=== PATIENT | female | born 1945 | race Caucasian/White ===

== ENCOUNTER 2019-12-21 08:59 | Emergency (ER) | payer OTHER ==
[2019-12-21 09:58] LABS: Absolute Lymphocytes (CBC) 1.1 K/uL (0.7-4.9); Basophils % 0.5 % (0-1.3); Hematocrit 41.4 % (36.0-45.0); Lymphocytes % 7.7 % (15.3-44.8); MPV 9.2 fL (7.6-11.3); RBC Red Blood Cell Count 4.65 M/uL (3.86-4.86)
[2019-12-21] MEDS ORDERED: NA CHLORIDE 0.9% 1,000 ML ONE (10:04)
[2019-12-21] MEDS ORDERED: FENTANYL CITR 100 MCG/2 ML ONE (10:04)
[2019-12-21 10:14] LABS: Albumin 3.5 g/dL (3.4-5.0); Bilirubin Direct 0.2 mg/dL (0-0.2); Potassium 3.3 mmol/L (3.5-5.1); Protein, Total 7.8 g/dL (6.4-8.2)
[2019-12-21 10:32] LABS: Urine Bacteria <20 /HPF (<20)
[2019-12-21 10:33] LABS: Urine Culture Reflex Order NOT NEEDED; Urine Mucus 1+ /HPF (NONE SEEN)
[2019-12-21 10:34] LABS: Urine Blood 2+ (NEG); Urine Glucose NEGATIVE (NEG); Urine Protein NEGATIVE (NEG)
[2019-12-21] MEDS ORDERED: CEFOXITIN/SWI 1gm 1 GM/10 ML SYR ONE (10:36)
--- NOTE | 2019-12-21 10:43 | RAD REPORT ---
EXAM DESCRIPTION: US - Abdomen Exam Limited - 12/21/2019 10:14 am CLINICAL HISTORY: Abdominal pain. COMPARISON: 2011 FINDINGS: The gallbladder wall is not thickened. Multiple gallstones are present The biliary tree is normal caliber. IMPRESSION: Cholelithiasis without evidence of cholecystitis.
--- NOTE | 2019-12-21 10:53 | ER ---
Nurse's Notes [facility] Name: Nena Calderon Age: 74 yrs Sex: Female : 1945 Arrival Date: 12/21/2019 Time: 09:02 Bed 6 Private MD: Shiv Purvis T Diagnosis: Cholelithiasis;Upper abdominal pain, unspecified Presentation: 12/20 09:09 Chief complaint: Patient states: epigastric pain that started on Saturday, denies N/V/D em or fever, yesterday pain moved down to naval area/groin. Coronavirus screen: Patient denies a cough. Patient denies shortness of breath or difficulty breathing. Patient denies measured and/or subjective temperature greater than 100.4F prior to today's visit. Patient denies travel on a cruise ship or to a country the [facility]NOTE 3] currently lists as an affected area. Patient denies contact with known and/or suspected case of COVID-19. Ebola Screen: Patient negative for fever greater than or equal to 101.5 degrees Fahrenheit, and additional compatible Ebola Virus Disease symptoms Patient denies exposure to infectious person. Patient denies travel to an Ebola-affected area in the 21 days before illness onset. No symptoms or risks identified at this time. Initial Sepsis Screen: Does the patient meet any 2 criteria? No. Patient's initial sepsis screen is negative. Does the patient have a suspected source of infection? No. Patient's initial sepsis screen is negative. Risk Assessment: Do you want to hurt yourself or someone else? Patient reports no desire to harm self or others. Onset of symptoms was December 19, 2019. 09:09 Method Of Arrival: Ambulatory em 09:09 Acuity: CANDE 3 em Historical: - Allergies: 09:13 No Known Allergies; em - Home Meds: 09:13 Lisinopril Oral [Active]; em - PMHx: 09:13 Hypertension; em - PSHx: :13 mela. knee replacements; em - Immunization history:: Adult Immunizations up to date. - Social history:: Smoking status: . Vital Signs: 09:09 BP 135 / 88; Pulse 89; Resp 18; Temp 98.4(O); Pulse Ox 99% on R/A; Weight 61.23 kg; em Height 5 ft. 2 in. (157.48 cm); Pain 8/10; 10:41 BP 105 / 64; Pulse 73; Resp 18; Pulse Ox 95% on R/A; sv 09:09 Body Mass Index 24.69 (61.23 kg, 157.48 cm) em ED Course: 09:02 Patient arrived in ED. ag5 09:02 Shiv Purvis MD is Private Physician. ag5 09:07 Aneta Hewitt FNP-C [facility]. snw 09:07 Iván Lopez MD is Attending Physician. snw 09:12 Triage completed. em 09:13 Arm band placed on. em 09:35 Marissa Walker RN is Primary Nurse. sv 09:45 Inserted saline lock: 20 gauge in left antecubital area, using aseptic technique. Blood sv collected. Flushed left antecubital with 5 ml normal saline. 09:52 Urine Dipstick--Ancillary (enter results) Sent. sv 09:52 Basic Metabolic Panel Sent. sv 10:15 US Abdomen Limited In Process Unspecified. EDMS 10:52 Patrice Contreras MD is Referral Physician. snw 12:10 No provider procedures requiring assistance completed. IV discontinued, intact, sv bleeding controlled, No redness/swelling at site. Pressure dressing applied. Administered Medications: 10:03 Drug: fentaNYL (PF) 25 mcg Route: IVP; Site: left antecubital; sv 11:00 Follow up: Response: No adverse reaction; Pain is decreased; RASS: Alert and Calm (0) sv 10:03 Drug: NS 0.9% 1000 ml Route: IV; Rate: 75 ml/hr; Site: left antecubital; sv 12:09 Follow up: Response: No adverse reaction; IV Status: Order to discontinue infusion sv 11:09 Drug: Mefoxin 1 grams Route: IVPB; Infused Over: 30 mins; Site: left antecubital; sv 11:11 Follow up: Response: No adverse reaction; IV Status: Completed infusion; IV Intake: 10mlsv Intake: 11:11 IV: 10ml; Total: 10ml. sv Outcome: 10:53 Discharge ordered by . snw 12:10 Discharged to home ambulatory. sv 12:10 Condition: stable 12:10 Discharge instructions given to patient, Instructed on discharge instructions, follow up and referral plans. medication usage, Demonstrated understanding of instructions, follow-up care, medications, Prescriptions given X 2. 12:10 Patient left the ED. sv Signatures: Dispatcher [employer] Marissa Crawford, Aneta Rodriguez RN, WEATHERIZATION COORDINATOR-C WEATHERIZATION COORDINATOR-Manuel Mayorga, RN Martine Licona ag5
--- NOTE | 2019-12-21 10:53 | EDPHYS ---
Physician Documentation [facility] Name: Nena Calderon Age: 74 yrs Sex: Female : 1945 Arrival Date: 12/21/2019 Time: 09:02 Bed 6 Private MD: Shiv Purvis T ED Physician Iván Lopez HPI: 12/20 11:01 This 74 yrs old Female presents to ER via Ambulatory with complaints of snw Abdominal Cramping, Abdominal Pain. 11:01 The patient presents with abdominal pain in the right upper quadrant, that is diffuse. snw Onset: The symptoms/episode began/occurred 1 week(s) ago, and became worse yesterday, and became persistent. The symptoms do not radiate. Associated signs and symptoms: Pertinent positives: pressure. The symptoms are described as crampy. Severity of pain: At its worst the pain was moderate. The patient has not experienced similar symptoms in the past. It is unknown whether or not the patient has recently seen a physician, sees Dr. Purvis. Historical: - Allergies: 09:13 No Known Allergies; em - Home Meds: 09:13 Lisinopril Oral [Active]; em - PMHx: 09:13 Hypertension; em - PSHx: 09:13 mela. knee replacements; em - Immunization history:: Adult Immunizations up to date. - Social history:: Smoking status: . ROS: 11:02 Constitutional: Negative for fever, chills, and weight loss, Eyes: Negative for injury, snw pain, redness, and discharge, ENT: Negative for injury, pain, and discharge, Neck: Negative for injury, pain, and swelling, Cardiovascular: Negative for chest pain, palpitations, and edema, Respiratory: Negative for shortness of breath, cough, wheezing, and pleuritic chest pain, Back: Negative for injury and pain, : Negative for injury, bleeding, discharge, and swelling, MS/Extremity: Negative for injury and deformity, Skin: Negative for injury, rash, and discoloration, Neuro: Negative for headache, weakness, numbness, tingling, and seizure. 11:02 Abdomen/GI: Positive for abdominal pain, abdominal cramps, abdominal distension, flatulence. Exam: 10:59 Constitutional: This is a well developed, well nourished patient who is awake, alert, snw and in no acute distress. Head/Face: Normocephalic, atraumatic. Eyes: Pupils equal round and reactive to light, extra-ocular motions intact. Lids and lashes normal. Conjunctiva and sclera are non-icteric and not injected. Cornea within normal limits. Periorbital areas with no swelling, redness, or edema. ENT: Nares patent. No nasal discharge, no septal abnormalities noted. Tympanic membranes are normal and external auditory canals are clear. Oropharynx with no redness, swelling, or masses, exudates, or evidence of obstruction, uvula midline. Mucous membranes moist. Neck: Trachea midline, no thyromegaly or masses palpated, and no cervical lymphadenopathy. Supple, full range of motion without nuchal rigidity, or vertebral point tenderness. No Meningismus. Chest/axilla: Normal chest wall appearance and motion. Nontender with no deformity. No lesions are appreciated. Cardiovascular: Regular rate and rhythm with a normal S1 and S2. No gallops, murmurs, or rubs. Normal PMI, no JVD. No pulse deficits. Respiratory: Lungs have equal breath sounds bilaterally, clear to auscultation and percussion. No rales, rhonchi or wheezes noted. No increased work of breathing, no retractions or nasal flaring. Back: No spinal tenderness. No costovertebral tenderness. Full range of motion. Skin: Warm, dry with normal turgor. Normal color with no rashes, no lesions, and no evidence of cellulitis. MS/ Extremity: Pulses equal, no cyanosis. Neurovascular intact. Full, normal range of motion. Neuro: Awake and alert, GCS 15, oriented to person, place, time, and situation. Cranial nerves II-XII grossly intact. Motor strength 5/5 in all extremities. Sensory grossly intact. Cerebellar exam normal. Normal gait. Psych: Awake, alert, with orientation to person, place and time. Behavior, mood, and affect are within normal limits. 10:59 Abdomen/GI: Inspection: abdomen appears normal, Bowel sounds: normal, Palpation: moderate abdominal tenderness, in the anterior aspect of right lateral abdomen, anterior aspect of left lateral abdomen and right upper quadrant. Vital Signs: 09:09 BP 135 / 88; Pulse 89; Resp 18; Temp 98.4(O); Pulse Ox 99% on R/A; Weight 61.23 kg; em Height 5 ft. 2 in. (157.48 cm); Pain 8/10; 10:41 BP 105 / 64; Pulse 73; Resp 18; Pulse Ox 95% on R/A; sv 09:09 Body Mass Index 24.69 (61.23 kg, 157.48 cm) em MDM: 09:37 Patient medically screened. snw 10:51 Data reviewed: vital signs, nurses notes. Data interpreted: Pulse oximetry: on room air snw is 95 %. Interpretation: normal. Counseling: I had a detailed discussion with the patient and/or guardian regarding: the historical points, exam findings, and any diagnostic results supporting the discharge/admit diagnosis, lab results, radiology results, the need for outpatient follow up, for definitive care, a general surgeon. Physician consultation: Patrice Contreras MD was called at 10:52, was contacted at 10:52, regarding need to evaluate the patient as soon as possible, and will see patient in office, later today. 12/20 09:17 Order name: Basic Metabolic Panel snw 12/20 09:17 Order name: CBC with Diff; Complete Time: 16:28 snw 12/20 09:17 Order name: Hepatic Function; Complete Time: 10:21 snw 12/20 09:17 Order name: Lipase; Complete Time: 10:21 snw 12/20 09:17 Order name: Urine Culture snw 12/20 09:17 Order name: Urine Microscopic Only; Complete Time: 10:40 snw 12/20 09:17 Order name: IV Saline Lock; Complete Time: 09:52 snw 12/20 09:18 Order name: Basic Metabolic Panel; Complete Time: 10:21 EDMS 12/20 09:51 Order name: Urine Dipstick--Ancillary (enter results); Complete Time: 10:40 mt 12/20 09:52 Order name: US Abdomen Limited; Complete Time: 10:44 snw 12/20 12:05 Order name: Manual Differential; Complete Time: 16:28 EDMS 12/20 09:17 Order name: Labs collected and sent; Complete Time: 09:52 snw 12/20 09:17 Order name: Urine Dipstick-Ancillary (obtain specimen); Complete Time: 09:52 snw Administered Medications: 10:03 Drug: fentaNYL (PF) 25 mcg Route: IVP; Site: left antecubital; sv 11:00 Follow up: Response: No adverse reaction; Pain is decreased; RASS: Alert and Calm (0) sv 10:03 Drug: NS 0.9% 1000 ml Route: IV; Rate: 75 ml/hr; Site: left antecubital; sv 12:09 Follow up: Response: No adverse reaction; IV Status: Order to discontinue infusion sv 11:09 Drug: Mefoxin 1 grams Route: IVPB; Infused Over: 30 mins; Site: left antecubital; sv 11:11 Follow up: Response: No adverse reaction; IV Status: Completed infusion; IV Intake: 10mlsv Disposition: 15:37 Co-signature as Attending Physician, Iván Lopez MD. rn Disposition: 12/21/19 10:53 Discharged to Home. Impression: Cholelithiasis, Upper abdominal pain, unspecified. - Condition is Stable. - Discharge Instructions: Abdominal Pain, Adult, Colic, Fat and Cholesterol Restricted Diet, Cholelithiasis. - Prescriptions for Bentyl 20 mg Oral Tablet - take 1 tablet by ORAL route every 6 hours As needed; 20 tablet. promethazine 25 mg Oral Tablet - take 1 tablet by ORAL route every 6 hours As needed; 20 tablet. - Medication Reconciliation Form, Thank You Letter, Antibiotic Education, Prescription Opioid Use form. - Follow up: Emergency Department; When: As needed; Reason: Worsening of condition. Follow up: Patrice Contreras MD; When: Today; Reason: Recheck today's complaints, Continuance of care. Signatures: Dispatcher [employer] Marissa Crawford RN RN sv Waters, Shelly, FNP-C THAI MASSEUR-Manuel Mayorga RN RN em Nieto, Roman, MD MD employment attorney: (The following items were deleted from the chart) 12:10 10:53 12/21/2019 10:53 Discharged to Home. Impression: Cholelithiasis; Upper abdominal sv pain, unspecified. Condition is Stable. Forms are Medication Reconciliation Form, Thank You Letter, Antibiotic Education, Prescription Opioid Use. Follow up: Emergency Department; When: As needed; Reason: Worsening of condition. Follow up: Patrice Contreras; When: Today; Reason: Recheck today's complaints, Continuance of care. snw
--- OUTSIDE RECORDS SUMMARY | 2019-12-21 11:23 | XMS REPORT | Continuity of Care Document ---
:1945 Author Organization [facility] t Address [address] [place] [address] Care Team Providers Name Role Phone Unavailable Unavailable Unavailable Payers Payer Name Policy Type Policy Number Effective Date Expiration Date S ource Problems This patient has no known problems. Allergies, Adverse Reactions, Alerts Allergy Allergy Status Severity Reaction(s) Onset Inactive Treating Comm ents Source Name Type Date Date Clinician No Known DA Active U 2018-06 [facility] [place] [facility] No Known DA Active U 2013-06 [facility] [place] [facility] Medications This patient has no known medications. Procedures This patient has no known procedures. Results Test Description Test Time Test Comments Results Result [facility] e Comments - MRI UP [facility] W/O 2019-05-04 Patient Name: CONT RT 08:09:00 SHIRIN ESCOBAR Unit No: [id number] EXAMS: CPT CODE: [id number] MRI UP [facility] W/[place] [id number] MR of the right shoulder without contrast TECHNIQUE: Paracoronal, parasagittal and axial multisequence images obtained. COMPARISON: None available. FINDINGS: Acromioclavicular joint: Moderate degenerative changes. Rotator cuff: High-grade tear of the anterior to mid supraspinatus tendon predominantly involves the undersurface and interstitial fibers and measures 2.2 cm transversely. The tear likely reaches full-thickness. Minimal undersurface retraction is present. Additional undersurface tear of the superior subscapularis tendon is present. There is mild fatty infiltration of the supraspinatus muscle and moderate fatty infiltration of the teres minor muscle. Long head biceps tendon: Biceps tendon is medially subluxated with severe superimposed tendinosis. Intrasubstance tear is suspected. Labrum: Complex superior labral tear is present. No other tear is identified. Cartilage/ bone: Degenerative edema seen within the superior and anterior glenoid. No acute fracture. No suspicious osseous lesion. Other: Minimal joint effusion is noted with evidence of synovitis. There is also complex fluid within the subacromial/subdeltoid bursa. IMPRESSION: 1. High-grade tear of the anterior to mid supraspinatus tendon tendon which likely reaches full-thickness. 2. Medial subluxation of the biceps tendon with superimposed tendinosis and likely partial tear. 3. Superior labral tear. at 0809 Reported and signed by: Phu Garay M.D. CC: Cheikh Pinto MD Technologist: RENNY WALKER MRI; Carline Ferreira, RT(R) Transcribed D/ (0809) [facility]: SHIRIN ESCOBAR [address] [facility] PHYS: GOMMU. - Cheikh Pinto : 1945 AGE: 73 SEX: F [place] [address] LOC: Y.MRI PHONE #: [phone] EXAM DATE: 04/29/2019 STATUS: DEP CLI FAX #: [phone] RAD #: D/C DT PAGE 1 Signed Report Patient Name: SHIRIN ESCOBAR Unit No: [id number] EXAMS: CPT CODE: [id number] MRI UP JNT W/[place] [id number] <Continued> Orig Print D/T: S: 05/04/2019 (0812) [facility] NAME: SHIRIN ESCOBAR [address] [facility] PHYS: GOMMU. - Martinez Pintorocael Carloz : 1945 AGE: 73 SEX: F [place] [address] LOC: Y.MRI PHONE #: [phone] EXAM DATE: 04/29/2019 STATUS: DEP CLI FAX #: [phone] RAD #: D/C DT PAGE 2 Signed Report
[2019-12-21 12:05] LABS: Blood Morphology Comment NOT SEEN (NOT SEEN); Platelet Estimate ADEQ
[2019-12-21 12:16] VITALS: TEMP 98.4
[2019-12-21 12:18] VITALS: BP 105/64; O2SAT 95
== END 2019-12-21 12:10 | disposition home or self-care (01) ==
LOC: ER 08:59
DX: K80.20 Calculus of gallbladder without cholecystitis without obstruction (principal); I10 Essential (primary) hypertension
CPT/HCPCS: 96361; 87088; 85025; 87086; 80048; 36415; 80076; 83690; 76705; 96375; 96374; 99284; J3010; J7030; 81003; 81015

== ENCOUNTER 2019-12-28 09:43 | Day surgery (SDC) | payer OTHER ==
[2019-12-28] MEDS ORDERED: Ringers Lactate 1,000 ML IV ONE ×2 (10:27→13:41)
[2019-12-28] MEDS: BUPIVACA 0.25%/EPI 0.0005%/PF 30 ML VIAL ONE ×2 (11:36→12:41)
[2019-12-28] MEDS: CEFOXITIN/SWI 1gm 1 GM/10 ML SYR ONE ×2 (11:37→12:25)
[2019-12-28] MEDS ORDERED: FENTANYL CITR 100 MCG/2 ML ONE (12:02)
[2019-12-28] MEDS ORDERED: LIDOCAINE 2% MPF 5 ML VIAL ONE (12:02)
[2019-12-28] MEDS ORDERED: dexAMETHasone 10 MG/ML VIAL ONE (12:02)
[2019-12-28] MEDS ORDERED: MIDAZOLAM HCL 2 MG/2 ML INJ ONE (12:02)
[2019-12-28] MEDS ORDERED: ROCURONIUM 50 MG/5 ML VIAL IV ONE (12:02)
[2019-12-28] MEDS ORDERED: propofoL 200 MG/20 ML VIAL IV ONE (12:02)
[2019-12-28] MEDS ORDERED: EPHEDRINE SULF 50 MG/ML VIAL ONE (12:41)
[2019-12-28] MEDS ORDERED: GLYCOPYRROLATE 0.2 MG/ML SYR ONE (13:11)
[2019-12-28] MEDS ORDERED: KETOROLAC 30 MG/ML INJ ONE (13:11)
[2019-12-28] MEDS ORDERED: NEOSTIGMINE 1 MG/ML -5 ML ONE (13:11)
--- NOTE | 2019-12-28 13:16 | P.OP ---
Preoperative diagnosis: Chronic Cholecystitis Postoperative diagnosis: Chronic Cholecystitis Primary procedure: Laparoscopic Cholecystectomy Anesthesia: GETA + Local Estimated blood loss: <5cc Specimen: Gallbladder Findings: Blue dome, dilated, floppy gallbladder Complications: None Transferred to: Recovery Room Condition: Good
--- OUTSIDE RECORDS SUMMARY | 2019-12-28 13:26 | XMS REPORT | Continuity of Care Document ---
:1945 Author Organization [facility] t Address [address] [place] [address] Care Team Providers Name Role Phone Unavailable Unavailable Unavailable Payers Payer Name Policy Type Policy Number Effective Date Expiration Date S ource Problems This patient has no known problems. Allergies, Adverse Reactions, Alerts Allergy Allergy Status Severity Reaction(s) Onset Inactive Treating Comm ents Source Name Type Date Date Clinician No Known DA Active U 2018-06 [facility] [place] [facility] No Known DA Active U 2013-06 [facility] [place] [facility] Medications This patient has no known medications. Procedures This patient has no known procedures. Results Test Description Test Time Test Comments Results Result [facility] e Comments - MRI UP [facility] W/O 2019-05-04 Patient Name: CONT RT 08:09:00 SHIRIN ESCOBAR Unit No: [id number] EXAMS: CPT CODE: [id number] MRI UP JN W/[place] [id number] MR of the right shoulder without contrast [...] MRI; Carline Ferreira, RT(R) Transcribed D/ (0809) [facility]: [facility] [address] [facility] PHYS: GOMM - Cheikh Pinto : 1945 AGE: 73 SEX: F [place] [address] LOC: Y.MRI PHONE #: [phone] EXAM DATE: 04/29/2019 STATUS: DEP CLI FAX #: [phone] RAD #: D/C DT PAGE 1 Signed Report Patient Name: SHIRIN ESCOBAR Unit No: [id number] EXAMS: CPT CODE: [id number] MRI UP JNT W/[place] [id number] <Continued> Orig Print D/T: S: 05/04/2019 (12) [facility] NAME: SHIRIN ESCOBAR [address] [facility] PHYS: GOMM - Cheikh Pinto : 1945 AGE: 73 SEX: F [place] [address] LOC: Y.MRI PHONE #: [phone] EXAM DATE: 04/29/2019 STATUS: DAWN FLORES FAX #: [phone] RAD #: D/C DT PAGE 2 Signed Report
[2019-12-28] MEDS ORDERED: HYDROCODONE/APAP 5/325 MG TAB ONE (14:23)
[2019-12-28 14:31] VITALS: TEMP 98; O2SAT 100
[2019-12-28 15:23] VITALS: BP 120/60
--- NOTE | 2019-12-29 00:24 | OP ---
Date of Procedure: 12/28/2019 Surgeon: Patrice Contreras MD, Preoperative Diagnosis: Chronic cholecystitis. Postoperative Diagnosis: Chronic cholecystitis. Procedure Performed: Laparoscopic cholecystectomy. Anesthesia: General endotracheal plus local,0.5% Marcaine with epinephrine. Estimated Blood Loss: Less than 5 cc. Specimen: Gallbladder. Findings: Blue dome, dilated, floppy gallbladder. Complications: None. Disposition: Transferred to recovery room in good condition. Procedure In Detail: After informed consent was obtained, the patient was brought to the operating room, prepped and draped in usual sterile fashion. After adequate anesthesia was achieved, a supraumbilical area was anesthetized with 0.5% Marcaine and sharply incised. A 5 mm trocar was introduced in the abdomen without evidence of complication. Insufflation was obtained to 15 mmHg at this time. There was no injury to any vital structures upon entry into the abdomen. Two additional trocars were chosen, 1 in the right upper quadrant and 1 in the epigastrium, these were similarly anesthetized and sharply incised. A 5 mm trocar was introduced in the abdomen without evidence of complication. The patient was positioned head up right-side up position. Ratcheted grasper was used to grasp the patient's gallbladder, placed towards the patient's right shoulder and dissection continued down to expose the cystic duct and cystic artery. The critical view of safety was obtained at this point with meticulous dissection. The structures identified as the cystic duct and cystic artery, both skeletonized and encircled. Double titanium clips were placed on proximal side and single on the distal side of both cystic duct and cystic artery. At this point, these 2 structures were ligated with Endo Araceli. At this point, the gallbladder was removed, the hepatic fossa was without evidence of complication. No hemostatic maneuvers were required. The gallbladder was placed in EndoCatch bag and removed through the umbilical trocar and sent off for pathologic examination. The abdomen was then completely re-insufflated and copiously irrigated multiple times until suctioned out completely clear. There was no spillage of bile throughout the procedure and no bleeding throughout the procedure. The patient was positioned back in neutral position and the remainder of the effluent was suctioned out. The 12 mm trocar was removed. 12 mm trocar site was closed using Phil-Jordan suture passer with 0 Vicryl in an interrupted fashion with good approximation of the tissue. The abdomen was then completely desufflated under direct visualization without evidence of complication. All trocars were removed. All skin incisions were copiously irrigated after completely desufflating the abdomen and all skin incisions were closed with a 4-0 Monocryl in a running fashion. Dermabond was placed over top. The patient tolerated the procedure well without evidence of complication and transferred to the PACU in good condition. All counts were correct at the end of the case. REINALDO/OLIVIA Voice ID: [id number] Report ID: [id number] MTDD
== END 2019-12-28 15:15 | disposition home or self-care (01) ==
LOC: OR 09:43
PROVIDERS: ATTEND Surgery
PROC: 0FT44ZZ Resection of Gallbladder, Percutaneous Endoscopic Approach (ICD-10-PCS; principal; 2019-12-28 15:30)
DX: K80.10 Calculus of gallbladder with chronic cholecystitis without obstruction (principal); I10 Essential (primary) hypertension; Z11.59 Encounter for screening for other viral diseases; Z80.52 Family history of malignant neoplasm of bladder
CPT/HCPCS: 88304; 47562; U0002; J2704; J2250; J3010; J1100; J2710; J7120 ×2

== ENCOUNTER 2023-01-08 17:22 | Emergency (ER) | payer OTHER ==
--- OUTSIDE RECORDS SUMMARY | 2023-01-08 17:33 | XMS REPORT | Continuity of Care Document ---
:1945 Author Organization [facility] t Address 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 00:00: dic 00 Sports Medicin e Acquired Acquired Problem Active 2020-06 Azale a deformity Deformity 30 Orth ope of toe of of Toe of 00:00: dic left foot Left Foot 00 Spor ts Medicin e Glenoid Glenoid Problem Active 2018-06 Tatyana labrum Labrum 2- Orthope tear Tear 00:00: dic 00 Sports Medicin e Disorder Disorder Problem Active 2018-06 Azale a of rotator of Rotator 06-29 Or cuff Cuff 00:00: dic 00 Sports Medicin e Biceps Biceps Problem Active 2018-06 Tatyana tendinitis Tendinitis 06-29 Or thope 00:00: dic 00 Sports Medicin e Impingemen Impingemen Problem Active 2018-06 A zalea t syndrome t Syndrome 06-29 Or thope of of 00:00: dic shoulder Shoulder 00 Sports region Region Medicin e Pain of Pain of Problem Active 2018-06 Tatyana right Right 06-29 Orthope shoulder Shoulder 00:00: dic joint Joint 00 Sports Medicin e Pain of Pain of Problem Active 2016-06 Tatyana sternum Sternum 1-08 Orthope 00:00: dic 00 Sports Medicin e Plantar Plantar Problem Active Tatyana fasciitis Fasciitis 02-21 Orth ope 00:00: dic 00 Sports Medicin e Closed Closed Problem Active Tatyana fracture Fracture 02-21 Orthop e of distal of Distal 00:00: dic phalanx of Phalanx of 00 Sp orts lesser toe Lesser Toe Me dicin e Cervical Cervical Problem Active Azale a spondylosi Spondylosi 2-20 Or thope s without s without 00:00: dic myelopathy Myelopathy 00 Sp orts Medicin e Degenerati Degenerati Problem Active A nemesiohakeemolga on of on of 2-20 Orthope cervical Cervical 00:00: dic interverte Interverte 00 Sp orts bral disc bral Disc Medi cristian e Cervical Cervical Problem Active Azale a radiculopa Radiculopa 2-20 Or thope thy thy 00:00: dic 00 Sports Medicin e Osteoarthr Osteoarthr Problem Active A nemesioleolga itis of itis of 4-13 Orthope wrist Wrist 00:00: dic 00 Sports Medicin e Pain in Pain in Problem Active Tatyana wrist Wrist 4-08 Orthope 00:00: dic 00 Sports Medicin e Mass of Mass of Problem Active Tatyana wrist Wrist 4-08 Orthope joint Joint 00:00: dic 00 Sports Medicin e Carpal Carpal Problem Active Tatyana joint Joint 4-08 Orthope sprain Sprain 00:00: dic 00 Sports Medicin e Postproced Postproced Problem Active 2013-06 A nemesiolea ural state ural State 2-19 Or thope finding Finding 00:00: dic 00 Sports Medicin e Patellofem Patellofem Problem Active 2013-06 A zalea oral oral 1-14 Orthope osteoarthr Osteoarthr 00:00: di c itis itis 00 Sports Medicin e 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 zalea replacemen Replacemen 2-28 Or thope t t 00:00: dic 00 Sports Medicin e Osteoarthr Osteoarthr Problem Active A zahakeema itis of itis of 1-30 Orthope knee Knee 00:00: dic 00 Sports Medicin e Allergies, Adverse Reactions, Alerts Allergy Allergy Status Severity Reaction(s) Onset Inactive Treating Comm ents Source Name Type Date Date Clinician No Known DA Active U 2018-06 [facility] Allergie 07-22 [facility] 00:00: Orthope 00 dic Hospita [facility] No Known DA Active U 2013-06 [facility] Allergie 07-09 [facility] 00:00: Orthope 00 dic Hospita l Social History Smoking Status Start Date Stop Date Source Never Smoker Tat[facility] Orthopedi c Sports Medicine Medications Ordered Filled Start Stop Current Ordering Indication Dosage Frequency Signature Comments Components Source Medication Medication Date Date Medication? Clinician (SIG) Name Name lisinopril lisinopril No lisinopril Tatyana 10 10 10 Orthope mg-hydrochl mg-hydrochl mg-hydroch dic orothiazide orothiazide lorothiazi Sports 12.5 mg 12.5 mg de 12.5 mg Med icin tablet tablet tablet e lisinopril lisinopril No lisinopril Tatyana 20 20 20 Orthope mg-hydrochl mg-hydrochl mg-hydroch dic orothiazide orothiazide lorothiazi Sports 12.5 mg 12.5 mg de 12.5 mg Med icin tablet tablet tablet e Vital Signs Vital Name Observation Time Observation Value Comments Source Height 2022-09-12 00:00:00 60 [in_i] [facility] O rthopedic Sports Medicine BMI (Body Mass 2022-09-12 00:00:00 25.4 kg/m2 Tat[facility] Orthopedic Index) Sports Medicine Body Weight 2022-09-12 00:00:00 130 [lb_av] [facility] Medicine Procedures Procedure Date / Time Performing Clinician Source Performed XR, knee, 3 view 2022-09-12 00:00:00 Tatyana Orth opedic Sports Medicine Total Knee Arthroplasty 2014-05-08 00:00:00 Mckenzie ng Orthopedic Sports Medicine Total Knee Arthroplasty 2012-07-17 00:00:00 Mckenzie ng Orthopedic Sports Medicine Knee Replacement [facility] Medicine Shoulder Surgery [facility] Plan of Care Planned Activity Planned Date Details Comments Source Instructions [facility] Sports Medicine Encounters Start End Encounter Admission Attending Care Care Encounter Source Date/Time Date/Time Type Type Clinicians Facility Department ID 2022-10-13 2022-10-13 Outpatient FOG_Fukuda_ AOSM AOSM [id number] Tatyana 00:00:00 00:00:00 Eliza [id number] Orth ope dic Sports Medicin e 2022-09-12 2022-09-12 [place] [facility] [place] - Ortho Tatyana 00:00:00 00:00:00 Pauline Cordova MD: [id number] F[facility]Of[facility] dic [facility] [place], [place] [address] , Ph. [phone] 2022-09-11 2022-09-11 Outpatient FOG_Fukuda_ AOSM AOSM [id number] Tatyana 00:00:00 00:00:00 Eliza [id number] Orth ope dic Sports Medicin e 2022-09-05 2022-09-05 Outpatient FOG_Fukuda_ AOSM AOSM [id number] Tatyana 00:00:00 00:00:00 Eliza [id number] Orth ope dic Sports Medicin e 2022-09-05 2022-09-05 Outpatient FOG_Fukuda_ AOSM AOSM [id number] Tatyana 00:00:00 00:00:00 Eliza [id number] Orth ope dic Sports Medicin e 2022-09-05 2022-09-05 Outpatient FOG_Fukuda_ AOSM AOSM [id number] Tatyana 00:00:00 00:00:00 Eliza [id number] Orth ope dic Sports Medicin e 2022-09-04 2022-09-04 Outpatient FOG_Fukuda_ AOSM AOSM [id number] Tatyana 00:00:00 00:00:00 Eliza [id number] Orth ope dic Sports Medicin e Results Test Description Test Time Test Comments Results Result Sour e Comments - MRI UP JNT W/O 2019-05-04 Patient Name: CONT RT 08:09:00 SHIRIN ESCOBAR Unit No: [id number] EXAMS: CPT CODE: [id number] MRI UP JNT W/[place] [id number] MR of the right shoulder without contrast [...] MRI; Carline Ferreira, RT(R) Transcribed D/ (0809) SebastianEduardo [facility] NAME: SHIRIN ESCOBAR [address] [facility] PHYS: GOMMU.Hector - Cheikh Pinto : 1945 AGE: 73 SEX: F [place], [place] [address] LOC: Y.MRI PHONE #: [phone] EXAM DATE: 04/29/2019 STATUS: DEP CLI FAX #: [phone] RAD #: D/C DT PAGE 1 Signed Report Patient Name: SHIRIN ESCOBAR Unit No: [id number] EXAMS: CPT CODE: [id number] MRI UP JNT W/[place] [id number] (Continued) Orig Print D/T: S: 05/04/2019 (0812) [facility] NAME: SHIRIN ESCOBAR [address] [place] [address] PHYS: ROCÍOMMU.Hector - Cheikh Pinto : 1945 AGE: 73 SEX: F [place] [address] LOC: Y.MRI PHONE #: [phone] EXAM DATE: 04/29/2019 STATUS: DEP CLI FAX #: [phone] RAD #: D/C DT PAGE 2 Signed Report Notes Date/Time Note Provider Source 2019-05-29 09:54:00-00:00 [id number] [place] [address] PATIENT NAME: SHIRIN ESCOBAR ADMIT DATE: 05/29/19 ACCOUNT NO: [id number] ROOM NO: AGE: 73 REPORT TYPE: OPERATIVE REPORT SEX: F ADMITTING PHYSICIAN: ATTENDING PHYSICIAN:Cheikh Pinto MD OPERATION DATE: 05/29/2019 PREOPERATIVE DIAGNOSES: Right shoulder rotator c uff tear, recalcitrant biceps tendinosis, recalcitrant subacromial impingement , and superior labral tear. POSTOPERATIVE DIAGNOSES: 1. Right shoulder full-thickness supraspinatus t endon tear, complex. 2. Right shoulder recalcitrant biceps tendinosis with partial tear and subluxation. 3. Right shoulder recalcitrant subacromial impin gement with type 2 acromion. 4. Right shoulder type 2 superior labral anterio r to posterior tear. 5. Right shoulder glenohumeral chondromalacia. PROCEDURES: 1. Right shoulder diagnostic arthroscopy with arthroscopic rotator cuff repair (86040). 2. Right shoulder arthroscopy biceps tenodesis ( 14996). 3. Right shoulder arthroscopic debridement of th e superior, anterior, and posterior labrum, glenohumral joint (41012). 4. Right shoulder arthroscopic subacromial decom pression with minimal acromioplasty (43527). ATTENDING SURGEON: Cheikh Pinto M.D. ANIMAL CRUELTY INVESTIGATION SUPERVISOR: ALFREDA Garces The skilled assistance of the assistant city attorney surgeon was necessary during this complex shoulder reconstructive procedur e.? They assisted with every aspect of the operation including, but not limited to, pro per and safe positioning of the patient, obtaining adequate surgical exposur e, manipulation of surgical instruments, perfect visualization of the surgic al field, the meticulous task of assisting with suture passage and assistance during implant placement, manipulation of the instrumentation during impla nt placement, visualization during suture passage, assistance during knot ty ing, assisting during work around the shoulder, assisting with access to ea ch portion of the joint, assisting with limb positioning during the proce dure, incision closure, dressing placement, assistance with moving the p atient off of the operating table, proper placement of the postoperative sli ng, and assistance with patient transfer from the operating room. Their assistance allowed me to perform the most sensitive and technical potions of this operation using 2 hands, thus enhancing patient safety.? This woul d not be possible without the help of a skilled assistant city attorney familiar with the pr ocedure and capable of safely performing the aforementioned tasks.? Ou r facility is not a teaching hospital, PATIENT NAME: SHIRIN ESCOBAR and as such, no surgical residents or interns we re available to assist. ANESTHESIA: General. ESTIMATED BLOOD LOSS: 30 mL. COMPLICATIONS: None. SPECIMENS: None. DISPOSITION: Stable to PACU. IMPLANTS: One [employer] anchors in the medial row and two 4.5-mm footprint anchors uti lized in the lateral row to complete a transosseous equivalent 1 x 2 double-row rotator cuff repair. Additional stay suture from the suture anchor was utilized for the biceps te nodesis. FINDINGS: The chondral surfaces of the glenoid a nd humeral head demonstrated diffuse areas of grade I changes. There is a com plex superior labral anteroposterior tear extending to sublabral fora men. There was significant hypertrophy with partial tear and subluxation of the long head of the biceps tendon. Subscapularis was intact. Supraspinatus demonstrated a full-thickness tear, which was complex and delaminated, involvi ng approximately 15 mm in anterior-posterior direction with minimal retrac tion. The tissue quality was good amenable to rotator cuff repair. Re mainder of the rotator cuff was intact with significant hypertrophy in the subacromial bursa with a type 2 acromion. The shoulder joint was stable. INDICATIONS FOR PROCEDURE: Carloz Escobar is a pleasant 73-year-old female who has been experiencing left shoulder pain, weakness, loss of motion, and loss of function worsening over the past year. The pain worsens with overhead activities and at night. The pain has been refractory to multiple conservative treatment op tions for over 6 months including selective rest, activity modification, therapeutic exercises, and prescription anti-inflammatory use. The pain and weakness are severe, causing a loss of shoulder function, and affecting activ ities of daily living. Preoperative exam demonstrated weakness with rot ator cuff testing, decreased active range of motion, positive biceps tendinit is, positive Neer?s and Hawkin?s impingement signs.Preoperative MRI demo nstrated rotator cuff tear, biceps tendinitis. The risks and benefits of continued conservative , alternative, and surgical options were discussed at length. Specific risks of shoulder arthroscopy were discussed at length including infection, nerve injury, venous thromboembolism, continued pain, stiffness, risk of retear, failu re of the biceps tenodesis, failure of the rotator cuff repair, the need for further surgery, and the risks of anesthesia. The expected postoperative course was discussed at length. The patient understood, agreed, and elec benjamin to proceed with the aforementioned surgery. Informed consent was obt ained. PROCEDURE IN DETAIL: The patient was identified in the preoperative holding area and the operative site was marked. The mili ent was brought in the operating room and placed in the modified beach chair position. Once appropriate anesthesia was obtained, prophylacti c IV antibiotics were administered. An examination under anesthesia wa s performed. The operative shoulder was prepped and draped in the usual lino rile fashion. A time- out was performed verifying the patient's name, the oper ative site, procedure to be performed, administration of IV antibiotics, and the need for any specific equipment. PATIENT NAME: SHIRIN ESCOBAR Utilizing a standard posterior portal with an #1 1 blade to the skin and blunt penetration of the glenohumeral joint, a diagnos tic arthroscopy of the shoulder was performed with the findings as stat ed above. Anterior portal was created. The superior labral anterior to posteri or tear was identified, extending into the sublabral foramen. The anteri or, superior, and posterior portions of the labrum were debrided back to smo oth stable configuration. The biceps was inspected and tendinosis along the bi ceps tendon was visualized. The biceps was then released off the superior la bral attachment. The rotator cuff was inspected. After this was completed, a final diagnostic arthroscopy demonstrated no further treatable pathology in t joint. The arthroscopic equipment was removed and placed the subacromial space. An accessory lateral portal was created. Hypertr ophic thickening and inflammation in the subacromial bursa was noted. A subacromial bursectomy occurred and small acromioplasty occurred, creat ing a type 1 acromion. The rotator cuff was inspected and the rotator c uff tear was identified. This was subsequently repaired by removing all debris overlying the footprint creating a bleeding surface of bone without dist urbing the subchondral plate. One double-loaded anchors was placed in the medi al aspect of the footprint centrally. The sutures were passed through the t endon with a self retrieving suture passer. One pair was passed centrally in a mattress fashion. The other pair was passed anteriorly and posteriorly. The central sutures were tied sequentially with arthroscopic knots. The termin al ends of the sutures were placed in a cruciate configuration throu gh two lateral anchors. This completed the transosseous equivalent double- row rotator cuff repair. This secured the rotator cuff well through a range of motion. Subdeltoid dissection occurred down to t bicipital groove. The biceps sheath was released, and the biceps tendon was subluxed out of the groove. Bleeding was controlled with electrocautery. The bicipita l groove was gently decorticated. Two all-suture anchors were placed in the distal aspect of the bicipital groove. The biceps was placed in the a ppropriate tension. The sutures from the anchor were placed around the b iceps in a lasso-loop technique. The sutures were sequentially tied do wn and cut. This secured the biceps tenodesis at the appropriate tension. Final diagnostic arthroscopy demonstrated no fur ther treatable pathology, so the arthroscopic equipment was removed from the shoulder after the fluid was drained from it. Portal sites were closed with buried Monocryl suture. A sterile dressing followed by a sling was applied . The patient was awakened from anesthesia without complication, transferred to the postoperative care unit in stable condition. POSTOPERATIVE PLAN: Discharge home once discharg e criteria are met. Oral pain medication for pain control. VTE prophylaxis ini tiated. Sling for 4 weeks, which was fitted for home use, and is medically necessary to protect the rotator cuff repair while the shoulder regains f ull motion and strength. Follow-up in the office in 10 to 14 days or soon er as needed. Start pendulum exercises, and advance per complex rotator cuff repair physical therapy protocol. PATIENT NAME: SHIRIN ESCOBAR Dictated By: Cheikh Pinto MD WT: OP:[email or web address]/NTS Conf#: [id number]/DID#: [id number] Authenticated and Edited by Cheikh Pinto MD On 06/01/19 4:43:56 PM at 1645 PATIENT NAME: SHIRIN ESCOBAR 2019-05-21 14:14:00-00:00 [id number] [place] [address] PATIENT NAME: SHIRIN ESCOBAR ADMIT DATE: ACCOUNT NO: [id number] ROOM NO: AGE: 73 REPORT TYPE: ELECTROCARDIOGRAM SEX: F ADMITTING PHYSICIAN: ATTENDING PHYSICIAN:Cheikh Pinto MD Order: [id number] Test Reason : PRE OP CLEARANCE HTN Test Date/Time Stamp: SatMay 21 2019 14:14:05 Blood Pressure : / mmHG Vent. Rate : 085 BPM Atrial Rate : 085 BPM P-R Int : 146 ms QRS Dur : 084 ms QT Int : 380 ms P-R-T Axes : 049 -42 037 degree s QTc Int : 452 ms Normal sinus rhythm Left axis deviation Septal infarct (cited on or before 09-JUL-2012) Abnormal ECG When compared with ECG of 21-MAY-2019 14:12, (Un confirmed) No significant change was found Confirmed by KATE EDWARDS MD ([id number]) on 05/24/2019 5:22:15 PM Referred By: Cheikh Pinto Confirmed by:KHRIS EDWARDS MD Electronically Signed by Kate Edwards MD on 05/04 07/22 at 6350 PATIENT NAME: SHIRIN ESCOBARRADHA
--- NOTE | 2023-01-08 20:18 | RAD REPORT ---
EXAM DESCRIPTION: RAD - Os Calcis (Calcaneus) Heel - 01/08/2023 6:55 pm CLINICAL HISTORY: PAIN COMPARISON: No comparisons TECHNIQUE: Right calcaneus, 2 views. FINDINGS: No fracture, dislocation or periosteal reaction. Moderate calcaneal spur with heterogeneous sclerosis, may relate to acute or chronic sequelae of plan tar fasciitis. Enthesopathy at the Achilles tendon attachment. No air or foreign body in the soft tissues. IMPRESSION: No acute osseous abnormality. Findings as above.
[2023-01-08] MEDS ORDERED: HYDROCODONE/APAP 7.5/325 MG TAB ONE (20:20)
[2023-01-08] MEDS ORDERED: IBUPROFEN 400 MG TAB ONE (20:20)
--- NOTE | 2023-01-08 20:30 | EDPHYS ---
Physician Documentation [facility] Name: Nena Calderon Age: 77 yrs Sex: Female : 1945 Arrival Date: 01/08/2023 Time: 17:22 Bed 10 Private MD: ED Physician Elio Garcia HPI: 01/08 18:30 This 77 yrs old Female presents to ER via Wheelchair with complaints of Fall Injury, cp Foot Pain - Right Heel. 18:30 The patient presents with an injury, pain, that is acute. The complaints affect the cp heel of right foot. 18:30 Context: the patient can fully bear weight, the patient is able to ambulate, with cp moderate difficulty, resulted from misstep while getting off ladder. Onset: The symptoms/episode began/occurred yesterday. Associated signs and symptoms: The patient has no apparent associated signs or symptoms. Historical: - Allergies: 18:02 No Known Allergies; bp - Home Meds: 18:02 lisinopril 10 mg oral tablet [Active]; bp - PMHx: 18:02 Hypertension; bp - Immunization history:: Adult Immunizations up to date. - Social history:: Smoking status: Patient denies any tobacco usage or history of. ROS: 18:35 MS/extremity: Positive for pain, tenderness, of the heel of right foot. cp 18:35 Constitutional: Negative for body aches, chills, fever. cp 18:35 Neck: Negative for pain with movement, pain at rest, stiffness. 18:35 Respiratory: Negative for cough, shortness of breath, wheezing. 18:35 Back: Negative for pain at rest, pain with movement. 18:35 Neuro: Negative for altered mental status, headache, numbness, weakness. 18:35 All other systems are negative. Exam: 18:40 Constitutional: The patient appears in no acute distress, alert, awake, non-toxic, well cp developed, well nourished. 18:40 Head/Face: Normocephalic, atraumatic. cp 18:40 Neck: ROM/movement: is normal, is supple, without pain, no range of motions limitations. 18:40 Back: pain, is absent, ROM is normal. 18:40 Musculoskeletal/extremity: Extremities: grossly normal except: noted in the heel of right foot: pain, tenderness, There is no evidence of decreased ROM, deformity, Pulses: noted to be 2+ in the right dorsalis pedis artery, the right foot Sensation intact. Achilles tendon palpated and intact, no pain to palpation noted base of right fifth metatarsal. 18:40 Skin: cellulitis, is not appreciated, no rash present. Vital Signs: 18:00 BP 132 / 81; Pulse 81; Resp 16; Temp 98; Pulse Ox 96% ; Weight 61.23 kg; Height 5 ft. 0 bp in. ; 18:00 Body Mass Index 26.36 (61.23 kg, 152.4 cm) bp MDM: 18:12 Patient medically screened. cp 19:45 Differential diagnosis: fracture, sprain. cp 20:28 Data reviewed: vital signs, nurses notes, radiologic studies, plain films. cp 20:28 I considered the following discharge prescriptions or medication management in the cp emergency department Medications were administered in the Emergency Department. See MAR. Independent interpretation of the following test(s) in the Emergency Department X-Ray: My interpretation is images of right heel negative for fracture. Counseling: I had a detailed discussion with the patient and/or guardian regarding: the historical points, exam findings, and any diagnostic results supporting the discharge/admit diagnosis, radiology results, the need for outpatient follow up, a family practitioner, to return to the emergency department if symptoms worsen or persist or if there are any questions or concerns that arise at home. Response to treatment: the patient's symptoms have markedly improved after treatment, and as a result, I will discharge patient. 01/08 18:02 Order name: XRAY Heel Os Calcis (calcaneus); Complete Time: 20:27 cp 01/08 20:27 Order name: Walking boot; Complete Time: 22:08 cp Administered Medications: 20:14 Drug: Hydrocodone-Acetaminophen PO (7.5 mg-325 mg) 1 tabs Route: PO; cm10 20:14 Drug: Ibuprofen PO 800 mg Route: PO; cm10 Disposition Summary: 01/08/23 20:29 Discharge Ordered Location: Home cp Problem: new cp Symptoms: have improved cp Condition: Stable cp Diagnosis - Pain in right foot cp Followup: cp - With: Paul Rojas MD - When: 1 week - Reason: Recheck today's complaints Discharge Instructions: - Discharge Summary Sheet cp - Foot Pain cp Forms: - Medication Reconciliation Form cp - Thank You Letter cp - Antibiotic Education cp - Prescription Opioid Use cp - Patient Portal Instructions cp Prescriptions: - Naprosyn 500 mg Oral Tablet - take 1 tablet by ORAL route 2 times per day take with food; 30 tablet; Refills: cp 0, Product Selection Permitted Signatures: Dispatcher [employer] EDMS Radhames Cormier PA PA cp Peltier, Brian, RN RN bp Jessica Gibbons RN RN cm10 Corrections: (The following items were deleted from the chart) 01/09 21:13 21:10 MS/extremity: Positive for pain, tenderness, of the heel of right foot, cp cp
--- NOTE | 2023-01-08 20:30 | ER ---
Nurse's Notes [facility] Name: Nena Calderon Age: 77 yrs Sex: Female : 1945 Arrival Date: 01/08/2023 Time: 17:22 Bed 10 Private MD: Diagnosis: Pain in right foot Presentation: 01/08 18:00 Chief complaint: Patient states: FALL ONTO STANDING R HEEL Y/D, SENT FROM [facility]. Coronavirus screen: At this time, the client does not indicate any symptoms associated with coronavirus-19. Ebola Screen: No symptoms or risks identified at this time. Initial Sepsis Screen: Does the patient meet any 2 criteria? No. Patient's initial sepsis screen is negative. Does the patient have a suspected source of infection? No. Patient's initial sepsis screen is negative. Risk Assessment: Do you want to hurt yourself or someone else? Patient reports no desire to harm self or others. Onset of symptoms is unknown. 18:00 Method Of Arrival: Wheelchair bp 18:00 Acuity: CANDE 3 bp Triage Assessment: 18:02 General: Appears in no apparent distress. Behavior is calm, cooperative, appropriate bp for age. Pain: Complains of pain in right foot. EENT: No deficits noted. Neuro: No deficits noted. Cardiovascular: No deficits noted. Respiratory: No deficits noted. GI: No signs and/or symptoms were reported involving the gastrointestinal system. : No signs and/or symptoms were reported regarding the genitourinary system. Derm: No deficits noted. Musculoskeletal: Reports pain in right foot. Historical: - Allergies: 18:02 No Known Allergies; bp - Home Meds: 18:02 lisinopril 10 mg oral tablet [Active]; bp - PMHx: 18:02 Hypertension; bp - Immunization history:: Adult Immunizations up to date. - Social history:: Smoking status: Patient denies any tobacco usage or history of. Screenin:42 [facility] ED Fall Risk Assessment (Adult) History of falling in the last 3 months, cm10 including since admission Yes- single mechanical fall (1 pt) Confusion or Disorientation No (0 pts) Intoxicated or Sedated No (0 pts) Impaired Gait Yes (1 pt) Mobility Assist Device Used Yes (1 pt) Altered Elimination No (0 pt) Score/Fall Risk Level 3 or more points = High Risk Oriented to surroundings, Maintained a safe environment, Hourly rounding (assess needs \T\ fall precautionary measures) done. Abuse screen: Denies threats or abuse. Denies injuries from another. Nutritional screening: No deficits noted. Tuberculosis screening: No symptoms or risk factors identified. Assessment: 19:41 General: Appears in no apparent distress. comfortable, Behavior is calm, cooperative. cm10 Pain: Complains of pain in heel of right foot Aggravated by increased activity. Neuro: No deficits noted. Level of Consciousness is awake, alert, obeys commands, Oriented to person, place, time, situation. Respiratory: No deficits noted. Airway is patent Respiratory effort is even, unlabored, Respiratory pattern is regular, symmetrical. Vital Signs: 18:00 BP 132 / 81; Pulse 81; Resp 16; Temp 98; Pulse Ox 96% ; Weight 61.23 kg; Height 5 ft. 0 bp in. ; 18:00 Body Mass Index 26.36 (61.23 kg, 152.4 cm) bp ED Course: 17:26 Patient arrived in ED. mg5 17:26 Radhames Cormier PA is PHCP. cp 17:26 Elio Garcia MD is Attending Physician. cp 18:02 Triage completed. bp 18:02 Arm band placed on. bp 18:56 XRAY Heel Os Calcis (calcaneus) In Process Unspecified. EDMS 19:41 Jessica Gibbons, RN is Primary Nurse. cm10 19:42 Patient has correct armband on for positive identification. Bed in low position. Call cm10 light in reach. Provided Education on: N/A. 20:27 Paul Rojas MD is Referral Physician. cp 21:30 No provider procedures requiring assistance completed. pf1 21:30 Patient did not have IV access during this emergency room visit. pf1 Administered Medications: 20:14 Drug: Hydrocodone-Acetaminophen PO (7.5 mg-325 mg) 1 tabs Route: PO; cm10 20:14 Drug: Ibuprofen PO 800 mg Route: PO; cm10 Medication: 19:42 VIS not applicable for this client. cm10 Outcome: 20:29 Discharge ordered by . cp 21:30 Discharged to home via wheelchair, with family. pf1 21:30 Condition: improved 21:30 Discharge instructions given to patient, family, Instructed on discharge instructions, follow up and referral plans. Demonstrated understanding of instructions, follow-up care, medications, Prescriptions given X 1. 22:07 Patient left the ED. pf1 Signatures: Dispatcher [employer] EDMS Radhames Cormier PA PA cp Peltier, Brian RN RN bp Giuliana Nelson RN RN pf1 Jessica Gibbons RN RN cm10 Saniya Dsouza mg5 Corrections: (The following items were deleted from the chart) 18:03 18:00 Pulse 81bpm; Resp 16bpm; Pulse Ox 96%; Temp 98F; 61.23 kg; Height 5 ft. 0 in.; bp BMI: 26.3; bp
[2023-01-08 22:56] VITALS: BP 132/81; TEMP 98; O2SAT 96
== END 2023-01-08 22:07 | disposition home or self-care (01) ==
LOC: ER 17:22
DX: M79.671 Pain in right foot (principal); I10 Essential (primary) hypertension
CPT/HCPCS: 73650; 99283